=== PATIENT | female | born 1965 | race Caucasian/White ===

== ENCOUNTER 2019-02-27 22:05 | Emergency (ER) | payer SELFPAY ==
[2019-02-27 22:05] VITALS: BP 126/72; PULSE 90; RESP 16; TEMP 37; O2SAT 100; BMI 36.6
--- NOTE | 2019-02-28 | ED.VISSUMM ---
- ER Visit Summary Date of Service: 02/28/19 Chief Complaint: Right knee pain History of Present Illness: The patient is a 53 F who presents with right knee pain. This began with an injury 3 months ago. She slipped on ice stoved her right knee. She has had progressive pain ever since that time. She was seen at [place] emergency department about 2 weeks ago and had a negative x-ray and was advised on supportive care including anti-inflammatories rest ice elevation. She states her pain has continued to progress and now she is using a cane due to pain. No new fall. No new injury. No recent illness such as fever chest pain shortness of breath. Physical Examination: Afebrile vitals unremarkable No distress Patient has active full range of motion of the right knee she has no focal bony tenderness there is no erythema it is not hot to the touch she does not have an appreciable effusion no edema normal sensation light touch easily palpable dorsalis pedis pulse Test Results: Not indicated Emergency Department Course and Treatment: Patient presents with chronic right knee pain from an injury in December. She has had negative x-rays since that time. I do not believe repeat x-rays at this point would be of benefit. She was advised to continue supportive care including rest ice and elevation. We will also start her on Mobic. I advised that she establish a primary care physician as she would likely benefit from referral to physical therapy and if her pain is been going on for 3 months she may need an MRI which would not be indicated on an emergent basis in the emergency department at this time. She is in agreement with this plan. Patient discharged. Treatment Plan: [] Disposition: Discharge Impression: Chronic right knee pain This note was generated with [employer] dictation software. It may contain incorrect words, spelling, and punctuation that were not noted in review of the chart prior to signing ED Disposition - Plan for ED Patient: Referrals: Care Physician,No Primary [Primary Care Provider] -
--- NOTE | 2019-02-28 00:02 | ED.DEP ---
ED Disposition - Plan for ED Patient: Instructions: ED Sprain Knee Prescriptions: Meloxicam [Mobic] 15 mg PO DAILY #14 tab Referrals: Care Physician,No Primary [Primary Care Provider] - Noemy Ridley DO [STAFF PHYSICIAN] -
[2019-02-28 00:23] VITALS: BP 120/70; PULSE 78; RESP 15; O2SAT 99
[2019-02-28] MEDS: Meloxicam 15 MG Tablet PO (00:23)
== END 2019-02-28 00:24 | disposition home or self-care (01) ==
PROVIDERS: Emergency Provider Emergency Medicine
DX: M25.561 Pain in right knee (principal); G89.29 Other chronic pain; Z72.0 Tobacco use
CPT/HCPCS: 99283

== ENCOUNTER 2021-02-05 00:49 | Emergency (ER) | payer MEDICAID, SELFPAY ==
[2021-02-05 00:51] VITALS: BP 148/74; PULSE 76; RESP 18; TEMP 36.6; O2SAT 97; BMI 39.1
--- NOTE | 2021-02-05 01:11 | ED.DCSUM_ITS ---
History of Present Illness Chief Complaint: Upper Extremity Injury Informant: Patient Occurred: Today - JPTA Mechanism/Context: Same level fall, Trip - over a battery in driveway, fell into nearby piano w/ hands/fingers and fell to knees Location: R middle finger Quality of Pain: Aching Current Severity: Severe Maximum Severity: Severe Worsened by: movement Relieved by: nothing Associated Symptoms: Loss of function. Negative for: Parasthesias, Weakness, Inability to ambulate, Loss of consciousness, Amnesia Narrative: Bmonn-idlb-xazbbsif female accidentally tripped and fell, her outstretched fingers went into a nearby piano and she injured her hand, but mostly her longest middle finger which is deformed. She states the whole hand is sore but mostly the middle finger. She bruised and scraped her knees but she states they are fine and she was able to walk on them without any difficulty. Past Medical History - Allergies and Home Meds Allergies/Adverse Reactions: Allergies Penicillins Allergy (Verified 02/05/21 00:51) Hives Primary Care Physician: Luis Neville MD [STAFF PHYSICIAN] - 1-2 Weeks (call for appt) Past Medical History: None Smoking Status: Current every day smoker Review of Systems General: Denies: Chills, Fever, Sweats Musculoskeletal: Reports: Extremity Pain. Denies: Neck pain, Back pain Skin: Reports: Abrasions. Denies: Rash, Wounds Neurological: Denies: Headache, Weakness, Numbness Physical Exam Vital Signs/Narrative: Vital Signs Temp Pulse Resp BP Pulse Ox 02/05/21 00:51 97.9 F 76 18 148/74 H 97 Inital Vital Signs reviewed: Yes General: Well nourished, Well developed, Obese, - - NAD Head: Normocephalic, Atraumatic Extremeties: Patient has an obvious deformity with intact skin at the right PIPJ of the middle finger, it appears to be in extension and valgus. There is brisk cap refill distally. The entire finger is tender. No other deformities. The rest of the hand is mildly tender everywhere but I see no other obvious injury. The other 3 extremities are benign full range of motion no apparent injury other than left knee abrasion anteriorly without effusion. Skin: Normal color, No rash, Trauma - Abrasion left knee Neurological: Alert, Oriented x3, Cranial nerves II-XII grossly intact, Normal Strength, Normal Sensation, Normal Gait Psychological: Normal affect, Normal Mood Diagnostic/Tx/Re-eval - Medical Decision Making On my interpretation, 3 view x-ray of the right hand shows a dislocation at the middle finger PIPJ, possibly with a small associated avulsion fracture of the base of the middle phalanx, no other fracture or dislocation. See the procedure note, patient consented verbally to closed reduction without digital block which was offered. Reduction was uncomplicated. She had difficulty moving it afterwards due to pain and swelling, but all tendons work. I splinted her. Postreduction films on my interpretation 3 views right middle finger show arthritis at the affected joint, and probably a small minor avulsion chip fracture of the base of the middle phalanx. Patient was given a Naprosyn and a tramadol, as well as an ice pack, I splinted her and she will follow up with plastics/hand here in [place]. Of note, on the postreduction films, the joint alignment is not absolutely perfect when compared to other digits, but the joint is reduced. I did distract the joint prior to splinting, along with some gentle internal/external rotation of the middle phalanx on the proximal, and there was no movement and the patient tolerated this fine. I think there is either a joint effusion, or possibly cartilage/soft tissue disorder in the joint as a result of the trauma/injury. I explained this to her as well as the importance of follow-up. Procedures - Upper Extremity Splints Upper Extremity Splint: Alumifoam Splint Fabrication: Fabricated Location: Right - Middle finger. Neurovascularly intact distally after placement. Procedure(s): Closed reduction right middle finger PIPJ dislocation: Patient declined digital block. With manual traction and slight distal pressure at the base of the middle phalanx, the joint was reduced with an audible and palpable clunk, with limited range of motion afterwards due to pain but resolution of the deformity. Postreduction x-rays confirm this. ED Disposition - Plan for ED Patient: Disposition: Home or Assisted Living Diagnosis: Dislocation of proximal interphalangeal joint of right middle finger, initial encounter Instructions: ED Finger Dislocation Referrals: Luis Neville MD [STAFF PHYSICIAN] - 1-2 Weeks (call for appt)
--- NOTE | 2021-02-05 01:12 | RAD_ITS ---
STUDY: X-RAY - RIGHT HAND REASON FOR EXAM: Female, 55 years old. injury from fall. pain in 2nd, 3rd, and 4th right digits. TECHNIQUE: 3 view(s) of the hand. COMPARISON: None. FINDINGS: There is posterior dislocation and angulation of the middle finger at the proximal interphalangeal joint. Small osseous fragment at the base of the third middle phalanx likely small avulsion fracture. No additional fracture or dislocation visualized. The soft tissue structures are unremarkable. RAD/Hand Min 3 Views IMPRESSION: Middle finger dislocation at the proximal interphalangeal joint with likely small avulsion fracture. Electronically Signed: Satinder Valles MD at 1:41 EST Tel , Service support ,
[2021-02-05] MEDS: Naproxen 250 MG Tablet 500 MG PO (01:27)
[2021-02-05] MEDS: traMADol 50 MG Tablet PO (01:27)
--- NOTE | 2021-02-05 01:28 | RAD_ITS ---
STUDY: X-RAY - RIGHT HAND, ATTENTION middle FINGER REASON FOR EXAM: Female, 55 years old. postreduction -- middle finger TECHNIQUE: 3 view(s) of the finger were obtained. COMPARISON: Same day right hand radiograph. FINDINGS: Interval reduction of third finger dislocation at the proximal interphalangeal joint. There is small adjacent calcifications to the joint space likely representing small avulsion fracture. RAD/Finger(s) Min 2 Views IMPRESSION: Interval reduction of middle finger dislocation with likely small avulsion fracture at the base of the middle phalanx. Electronically Signed: Satinder Valles MD at 1:54 EST Tel , Service support ,
== END 2021-02-05 01:50 | disposition home or self-care (01) ==
PROVIDERS: Emergency Provider Emergency Medicine
DX: S63.282A Dislocation of proximal interphalangeal joint of right middle finger, initial encounter (principal); F17.200 Nicotine dependence, unspecified, uncomplicated; W01.198A Fall on same level from slipping, tripping and stumbling with subsequent striking against other object, initial encounter
CPT/HCPCS: 73130; 73140; 99284

== ENCOUNTER 2023-05-08 20:10 | Emergency (ER) | payer MEDICAID, SELFPAY ==
[2023-05-08 20:11] VITALS: BP 149/87; PULSE 74; RESP 15; TEMP 36.1; O2SAT 100; BMI 34.9
[2023-05-08 20:18] VITALS: O2SAT 100
--- NOTE | 2023-05-08 20:29 | EKG12_ITS ---
Test Reason : SOB/CP Blood Pressure : / mmHG Vent. Rate : 064 BPM Atrial Rate : 064 BPM P-R Int : 128 ms QRS Dur : 084 ms QT Int : 406 ms P-R-T Axes : 059 047 083 degrees QTc Int : 418 ms Normal sinus rhythm Normal ECG Confirmed by TREMAINE CLEMENS, DAVONTE ([id number]), manager editorial NAS HENSLEY ([id number]) on 05/10/2023 8:09:31 AM Referred By: CLIFFORD Confirmed By:DAVONTE PENALOZA MD
[2023-05-08] MEDS: Ipratropium/Albuterol Sulfate 3 ML AMPUL.NEB INHALATION (20:44)
[2023-05-08 20:45] VITALS: PULSE 66; RESP 14
[2023-05-08 20:45] LABS: Absolute Lymphocyte Count 3.42 X10^3/uL (0.83-4.51); Basophil# 0.07 X10^3/uL; Eosinophil# 0.31 X10^3/uL; Eosinophils% 4.2 % (0-5); Hematocrit 43.4 % (37-47); Hemoglobin 14.6 g/dL (12.0-15.0); Lymphocyte # 3.42 X10^3/ul (0.83-4.51); Lymphocyte % 46.5 % (19-41); Mean Corp Hgb Conc 33.6 g/dL (32-36); Mean Corpuscular Hgb 31.1 pg (27.0-32.0); Mean Corpuscular Volume 92.3 fL (81-99); Mean Platelet Vol. 9.1 fl (6.2-12.0); Monocyte# 0.59 X10^3/uL; NRBC Flagged by Analyzer 0 % (0-5); Neutrophil # 2.95 X10^3/uL (2.7-7.7); Neutrophil % 40.2 % (47-70); Platelet Count 264 K/mm3 (150-450); RBC Distribution Width SD 44.7 fl (35.1-43.9); White Blood Count 7.4 K/mm3 (4.4-11.0)
[2023-05-08 21:03] LABS: D-Dimer Quantitative (DVT/PE) 0.57 FEU/ug/m (0.27-0.49)
[2023-05-08 21:10] VITALS: RESP 20; O2SAT 100
[2023-05-08 21:24] LABS: Anion Gap 3 (5-15); BUN 14 mg/dL (7-18); Calcium,Total 8.8 mg/dL (8.5-10.1); Chloride 107 mmol/L (98-107); Creatinine, Serum 0.93 mg/dL (0.55-1.02); EST Glomerular Filtration Rate 66 mL/min (>60); Est Glom Filt Rate - Afr Amer 79 mL/min (>60); Estimated Creatinine Clearance 60.06 ml/min; Glucose 71 mg/dL (74-106); Potassium 4.2 mmol/L (3.5-5.1); Sodium Level 142 mmol/L (136-145); Troponin-I HS 5 pg/mL (3.0-54.0)
[2023-05-08 22:00] VITALS: RESP 20
--- NOTE | 2023-05-08 22:09 | RAD_ITS ---
INDICATION: Dyspnea EXAMINATION/TECHNIQUE: X-RAY - XR Chest 1 View COMPARISON: None. FINDINGS: LINES/DEVICES: None. LUNGS: No pulmonary edema or focal airspace consolidation. No sizable pleural effusion. No pneumothorax detected. MEDIASTINUM AND CARDIOVASCULAR STRUCTURES: Heart size within normal limits. Mediastinal contours unremarkable. BONES AND SOFT TISSUES: No acute findings. RAD/Chest 1 View (Portable) IMPRESSION: No radiographic evidence of acute cardiopulmonary disease. Electronically Signed: Gee Berger MD at 22:22 EDT ,
[2023-05-08 23:00] VITALS: BP 111/85
--- NOTE | 2023-05-09 00:42 | EDS_ITS ---
HPI History of Present Illness Chief Complaint: Shortness of Breath Informant: patient Onset/Context/Timing Onset: Days Context: gradual Timing: Waxes and wanes Quality: Positive for Dyspnea on exertion Worsened by: Exertion Relieved by: Nothing Associated Symptoms sore throat, subjective and chills; Negative for cough, rhinorrhea, post nasal drip, ear pain, fever or sweats Chest Pain: Positive for Intermittent (Very brief), Sharp and Burning Narrative Narrative: Patient presents with shortness of breath that has been getting worse over the past couple days. Patient states it has been waxing and waning. Patient states he feels like a tightness and it is restricted. Patient states it is worse with exertion. Patient admits to some subjective chills but denies any fevers. Patient does admit to a sore throat. Patient denies any cough. Patient admits to some occasional sharp and burning pain in her chest. Patient states it comes and goes. Patient states it only lasts for a few seconds. Patient also admits to a 20 pound weight loss in the last 2 months which has been unintentional. Patient is concerned about cancer because she has had several family members with lung cancer. Patient states she herself has had skin cancer. PE Risk Factors: Positive for Cancer; Negative for OCP + Smoking + > 35, Prior DVT or PE, Recent immobilization, Recent surgery or Recent travel PFSH PFSH Medical History no medical history no medical history Home Medications albuterol sulfate 90 mcg/actuation aerosol inhaler (Ventolin HFA) 1 - 2 puff inhalation Q4H PRN PRN Wheezing ##1 05/08/23 [Rx Last Taken Unknown] Allergy/AdvReac Type Severity Reaction Status Date / Time Penicillins Allergy Hives Verified 05/08/23 20:14 Surgical History (Updated 05/09/23 @ 00:[address] Eligio Tapia DO) Hx of tubal ligation Social History Smoking Status: Current every day smoker tobacco type: cigarettes ROS ROS ED Constitutional Constitutional ED: Denies chills or fever(s) Eyes Eyes: Denies blurry vision or change in vision ENT ENT ED: Denies rhinorrhea or sore throat Cardiovascular Cardiovascular: Reports chest pain; Denies palpitations Respiratory/Chest Respiratory/Chest: Reports dyspnea; Denies cough Gastrointestinal Gastrointestinal: Denies nausea or vomiting Genitourinary Genitourinary ED: Denies dysuria or hematuria Musculoskeletal Musculoskeletal: Reports back pain; Denies neck pain Integumentary Reports rash; Denies abscess Neurologic Neurologic: Denies headache(s) or weakness Psychiatric Psychiatric: Reports anxiety Allergic/Immunologic Allergic/Immunologic ED: Denies mouth swelling or urticaria EXAM Physical Exam Const Vital Signs: 05/08/23 20:11 05/08/23 20:18 05/08/23 20:45 Temperature 96.9 F L Temperature Source Temporal Pulse Rate 74 66 Respiratory Rate 15 14 Respiratory Effort Short of Breath Blood Pressure 149/87 H Blood Pressure Mean 107 Pulse Ox 100 Oxygen Delivery Method Room Air Room Air 05/08/23 23:00 05/08/23 21:10 05/08/23 22:00 Temperature Temperature Source Pulse Rate Respiratory Rate 20 H 20 H Respiratory Effort Blood Pressure 111/85 H Blood Pressure Mean Pulse Ox 100 Oxygen Delivery Method Room Air Positive well nourished and well developed General Appearance ED: well developed HEENT Reports moist mucous membranes Neck supple and no JVD Resp normal respiratory effort and clear to auscultation bilaterally Cardio regular rate, regular rhythm and no murmurs GI normal to inspection, nondistended, normoactive bowel sounds and non-tender Palpation: soft Extremity normal to inspection General Extremety ED: Negative for edema or tenderness General Extremity: Negative for edema Neuro oriented x3, CN's II-XII intact bilaterally and no sensory deficits noted Sensorium / Orientation: alert Motor Exam: strength 5/5 throughout Psych mental status grossly normal Skin no rashes or lesions noted MDM MDM MDM Narrative Medical decision making narrative: Differential diagnosis includes reactive airway disease, anxiety, pulmonary embolism, anemia, COVID-19 infection, influenza infection, cardiac dysrhythmia, and cardiac ischemia. EKG will be obtained to assess for cardiac dysrhythmia and cardiac ischemia. Chest x-ray will be obtained to assess for pneumonia and lung cancer. COVID-19 rapid antigen will be obtained to assess for COVID-19 infection. Influenza A and influenza B antigens will be obtained to assess for influenza infection. CBC will be obtained to assess for leukocytosis and anemia. Basic metabolic profile will be obtained to assess for electrolyte abnormality and renal function. D-dimer will be obtained to assess for pulmonary embolism. High-sensitivity troponin will be obtained to assess for cardiac ischemia. Lab Data Attestation: I reviewed the patient's lab results. Lab results narrative: CBC was reviewed and was within normal limits. Basic metabolic profile was reviewed and was within normal limits. High-sensitivity troponin was reviewed and was normal. D-dimer was reviewed and was normal for her age at 0.57. COVID-19 rapid antigen was obtained and was normal. Influenza A and influenza B antigens were reviewed and were normal. Labs: Laboratory Results - last 24 hr 05/08/23 05/08/23 05/08/23 20:25 20:25 20:25 WBC 7.4 RBC 4.70 Hgb 14.6 Hct 43.4 MCV 92.3 MCH 31.1 MCHC 33.6 RDW Std Deviation 44.7 H RDW Coeff of Arleen 13.0 Plt Count 264 MPV 9.1 Immature Gran % (Auto) 0.100 Neut % (Auto) 40.2 L Lymph % (Auto) 46.5 H Nuckolls % (Auto) 8.0 Eos % (Auto) 4.2 Baso % (Auto) 1.0 Absolute Neuts (auto) 3.0 Absolute Lymphs (auto) 3.42 Nucleated RBC % 0 D-Dimer Quant (PE/DVT) 0.57 H* Sodium 142 Potassium 4.2 Chloride 107 Carbon Dioxide 32.0 Anion Gap 3 L BUN 14 Creatinine 0.93 Estim Creat Clear Calc 60.06 Est GFR (MDRD) Af Amer 79 Est GFR (MDRD) Non-Af 66 BUN/Creatinine Ratio 15.0 Glucose 71 L Calcium 8.8 Troponin I High Sens 5 Radiography Diagnostic Testing: Clinical Impression(s) from Imaging Studies Chest X-Ray 05/08/23 22:09 IMPRESSION: No radiographic evidence of acute cardiopulmonary disease. Electronically Signed: Gee Berger MD at 22:22 EDT , Portable 1 view chest x-ray was obtained. On my independent interpretation, lung osman are clear. There is normal cardiac silhouette. Bony thorax is normal. There is no acute process noted. Radiologist also interpreted the x- ray and agrees. EKG Initial EKG: Attestation: I personally reviewed and interpreted this EKG as follows: Interpretation: Sinus Rhythm (64) and No Acute Injury Pattern Comments: EKG was obtained. On my independent interpretation, it showed a normal sinus rhythm with a rate of 64. NE interval, QRS interval, and QTc intervals were all normal. [place] was normal. There are no acute ST or T wave changes. Prior EKG tracings: not available for review Prior: No Prior Treatment and Re-Evaluation :: Patient was given a DuoNeb aerosol here. Patient is feeling better on reevaluation. Patient was advised of her findings. Patient has a HEART score of 1. Patient was advised that this is low risk for acute cardiac event. Patient was instructed to follow-up with her primary care physician in 5 to 7 days. Patient was given a prescription for an albuterol inhaler. Patient was instructed to return if worse in any way. Patient understood and was agreeable with the plan. All questions were answered. Discharge Plan Triage Chief Complaint: Shortness of Breath ED Provider: Eligio Tapia Dx/Rx/DC Orders Clinical Impression: Dyspnea Instructions: ED Dyspnea Prescriptions: New albuterol sulfate [Ventolin HFA] 90 mcg/actuation HFA aerosol inhaler 1 - 2 puff inhalation Q4H PRN PRN (Reason: Wheezing) Qty: 1 0RF Primary Care Provider: Care Physician,No Primary Referrals: Dipti Lan MD [Med Staff - Food And Beverage Controller] - 5-7 Days Care Physician,No Primary [Primary Care Provider] - Disposition Disposition: Home, Self Care Discharge Date/Time: 05/08/23 23:02
== END 2023-05-08 23:02 | disposition home or self-care (01) ==
PROVIDERS: Emergency Provider Emergency Medicine; Visit Provider Emergency Medicine
DX: R06.00 Dyspnea, unspecified (principal); F17.210 Nicotine dependence, cigarettes, uncomplicated
CPT/HCPCS: 71045; 80048; 84484; 85025; 85379; 87428; 93005; 94640; 99284; A4216

== ENCOUNTER 2023-11-02 00:34 | Emergency (ER) | payer MEDICAID, SELFPAY ==
[2023-11-02 00:35] VITALS: BP 148/71; PULSE 80; RESP 18; TEMP 36.1; O2SAT 95; BMI 35.5
--- NOTE | 2023-11-02 01:05 | EDS_ITS ---
HPI History of Present Illness Chief Complaint: Lower Extremity Injury Detail of Chief Complaint: Right foot pain Informant: patient Narrative Narrative: Patient presents with right foot pain for the past several weeks. She states she feels like her arch is collapsing. She states when she steps on uneven ground she feels like her bones are not stable. She denies any known injury. No recent change in footwear. She has been taking ibuprofen as needed. PFSH PFSH Medical History no medical history no medical history Home Medications albuterol sulfate 90 mcg/actuation aerosol inhaler (Ventolin HFA) 1 - 2 puff inhalation Q4H PRN PRN Wheezing ##1 05/08/23 [Rx Last Taken Unknown] Allergy/AdvReac Type Severity Reaction Status Date / Time Penicillins Allergy Hives Verified 05/08/23 20:14 Surgical History (Updated 05/09/23 @ 00:[address] Eligio Tapia DO) Hx of tubal ligation Social History Smoking Status: Current every day smoker tobacco type: cigarettes ROS ROS ED Constitutional Constitutional ED: Denies chills or fever(s) Eyes Eyes: Denies discharge from eye(s) ENT ENT ED: Denies discharge from eye(s), rhinorrhea or sore throat Cardiovascular Cardiovascular: Denies chest pain Respiratory/Chest Respiratory/Chest: Denies cough or dyspnea Musculoskeletal Musculoskeletal: Reports extremity pain; Denies back pain Integumentary Denies Abrasions or rash Neurologic Neurologic: Denies headache(s), paresthesias or weakness Psychiatric Psychiatric: Denies anxiety or depression Allergic/Immunologic Allergic/Immunologic ED: Denies lip swelling or urticaria EXAM Physical Exam Narrative Exam Narrative: Patient sitting upright in bed no acute distress. Const Vital Signs: 11/02/23 00:35 Temperature 96.9 F L Temperature Source Temporal Pulse Rate 80 Respiratory Rate 18 Blood Pressure 148/71 H Blood Pressure Mean 96 Pulse Ox 95 Oxygen Delivery Method Room Air Positive well nourished and well developed General Appearance ED: well developed HEENT Reports moist mucous membranes Eyes PERRL Neck full ROM Chest Wall inspection of chest normal and palpation of chest normal Resp normal respiratory effort and clear to auscultation bilaterally Cardio regular rate and regular rhythm GI non-tender Extremity normal to inspection Extremity Narrative: Mild tenderness noted to the lateral portion of the right foot. No erythema, edema, ecchymosis, abrasions. Good cap refill distally. Mild lateral foot pain with dorsiflexion of the toes. Calf is soft and nontender. Neuro oriented x3 and moves all extremities Psych mental status grossly normal Skin no wounds Rashes: no rashes MDM MDM MDM Narrative Medical decision making narrative: Right foot x-rays obtained to evaluate for stress fracture. Right foot x-ray per my interpretation reveals no evidence of fracture. Lino wrap is applied around the foot to provide support. She will continue anti- inflammatories. She is referred to Dr. Oscar, on-call for podiatry. Discharge Plan Triage Chief Complaint: Lower Extremity Injury ED Provider: Denise Ramirez Dx/Rx/DC Orders Clinical Impression: Right foot sprain Instructions: ED Foot Sprain Prescriptions: No Action albuterol sulfate [Ventolin HFA] 90 mcg/actuation HFA aerosol inhaler 1 - 2 puff inhalation Q4H PRN PRN (Reason: Wheezing) Qty: 1 0RF Primary Care Provider: Care Physician,No Primary Referrals: Artem Oscar DPM [Med Staff - Active Staff] - 1 Week Care Physician,No Primary [Primary Care Provider] - Disposition Disposition: Home, Self Care
--- NOTE | 2023-11-02 02:10 | RAD_ITS ---
EXAM: XR RIGHT FOOT COMPLETE, 3 OR MORE VIEWS CLINICAL INDICATION: pain TECHNIQUE: Frontal, lateral and oblique views of the right foot. COMPARISON: No relevant prior studies available. FINDINGS: BONES/JOINTS: Moderate plantar calcaneal spur. Degenerative narrowing of the second through fifth toe DIP joints. No acute fracture. No subluxation. Normal alignment. No sclerotic or destructive changes observed. SOFT TISSUES: Soft tissue swelling dorsal to the mid foot. No radiopaque foreign body. RAD/Foot min 3 Views IMPRESSION: Soft tissue swelling. No acute fracture or dislocation identified. Electronically Signed: Donnie Cortez MD at 3:04 EST ,
== END 2023-11-02 02:28 | disposition home or self-care (01) ==
PROVIDERS: Emergency Provider Emergency Medicine; Visit Provider Emergency Medicine
DX: S93.601A Unspecified sprain of right foot, initial encounter (principal); F17.210 Nicotine dependence, cigarettes, uncomplicated; X58.XXXA Exposure to other specified factors, initial encounter
CPT/HCPCS: 73630; 99282

== ENCOUNTER 2024-04-09 11:54 | Day surgery (SDC) | payer MEDICAID, SELFPAY ==
--- NOTE | 2024-04-07 12:40 | EKG12_ITS ---
Test Reason : PRE-OP Blood Pressure : / mmHG Vent. Rate : 073 BPM Atrial Rate : 073 BPM P-R Int : 126 ms QRS Dur : 086 ms QT Int : 406 ms P-R-T Axes : 074 065 075 degrees QTc Int : 447 ms Normal sinus rhythm Normal ECG Confirmed by TREMAINE CLEMENS, DAVONTE ([id number]), scientific publications editor WESLEY BARRIOS ([id number]) on 04/08/2024 6:56:06 AM Referred By: Peter Yuan Confirmed By:DAVONTE PENALOZA MD
[2024-04-07 14:32] LABS: Absolute Neutrophil Count 3.1 X10^3/uL (2.0-7.7); Basophil# 0.08 X10^3/uL; Basophil% 1.2 % (0-1); Eosinophil# 0.35 X10^3/uL; Eosinophils% 5.1 % (0-5); Hematocrit 43.5 % (37-47); Hemoglobin 14.5 g/dL (12.0-15.0); Lymphocyte % 39.5 % (19-41); Mean Corp Hgb Conc 33.3 g/dL (32-36); Mean Corpuscular Hgb 30.9 pg (27.0-32.0); Mean Corpuscular Volume 92.6 fL (81-99); Monocyte# 0.61 X10^3/uL; Monocyte% 8.9 % (0-10); NRBC Flagged by Analyzer 0 % (0-5); Neutrophil # 3.09 X10^3/uL (2.7-7.7); Neutrophil % 45.2 % (47-70); Platelet Count 269 K/mm3 (150-450); RBC Distribution Width CV 13.6 % (11.6-14.6); RBC Distribution Width SD 46.7 fl (35.1-43.9); White Blood Count 6.8 K/mm3 (4.4-11.0)
[2024-04-07 15:02] LABS: Anion Gap 5 (5-15); BUN 20 mg/dL (7-18); BUN/Creat Ratio 27.7 RATIO (10-20); Calcium,Total 9.1 mg/dL (8.5-10.1); Chloride 108 mmol/L (98-107); Creatinine, Serum 0.72 mg/dL (0.55-1.02); EST Glomerular Filtration Rate 88 mL/min (>60); Est Glom Filt Rate - Afr Amer 106 mL/min (>60); Glucose 88 mg/dL (74-106); Potassium 4.2 mmol/L (3.5-5.1); Sodium Level 139 mmol/L (136-145)
[2024-04-09] VITALS (7 sets, daily range): BP systolic 118–143; BP diastolic 59–86; PULSE 64–81; RESP 16–18; TEMP 36.2–37; O2SAT 96–100; BMI 41.0
[2024-04-09] MEDS: Lactated Ringers 1,000 ML 15 ML IV (12:25)
[2024-04-09] MEDS: Clindamycin in 0.9% Sod Chlor 600 MG/50 ML BAG 100 MG IV (12:52)
[2024-04-09] MEDS: Epinephrine (1 mg/ml) 1 MG/ML VIAL (13:16)
[2024-04-09] MEDS: Bupiv/Epi 0.5% Mpf 30 ML Vial INFILT (13:28)
--- NOTE | 2024-04-09 13:44 | OP.PCM_ITS ---
Report of Operation Date of Procedure: 04/09/24 Description of Surgical Findings:: Preoperative diagnosis: 1. 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 Right knee loose body 3. Right knee medial meniscus tear Postoperative diagnosis: 1. 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 Right knee loose body 3. Right knee medial meniscus tear Procedure: Right knee arthroscopic chondroplasty, removal of loose body and partial medial meniscectomy Surgeon: Peter Yuan DO [employer] Teacher: Maria Isabel Maldonado PA-C Anesthesia: General LMA Anesthesiologist: Dr. Kyle Estimated blood loss: 2 cc IV fluids: Per anesthesia record Urine output: None recorded Specimen: None Implants: None Packing/drains: None Complications: None apparent Preoperative indications: This is a 58-year-old female seen in outpatient setting for right knee pain and mechanical symptoms. MRI demonstrated osteochondral lesion of the medial femoral condyle, loose body and medial meniscus tear. She failed nonoperative treatment for bedside, activity modification, physical therapy. I recommend surgical progressive form of right knee arthroscopic removal of loose body, partial medial vasectomy and chondroplasty. The risks and benefits, alternatives to the procedure reviewed with patient at length and she agreed to proceed. Risks included but were not limited to bleeding, infection, loss of life or limb, need for additional surgery, persistent pain, posttraumatic arthritis, neurovascular injury, stiffness, DVT or PE, risk of anesthesia. Informed consent obtained. Description of procedure: Patient identified preoperative holding her by name, correct number, and date of . The operative extremity was marked. All questions were answered to the patient satisfaction. At time of her procedure, patient brought the operative suite positioned supine on standard operating table. All bony prominences well-padded. General anesthesia was administered and LMA was placed. A well-padded pneumatic tourniquet was applied to the operative upper thigh. Arthroscopic leg argueta was applied to the right thigh. Well-leg argueta was placed in the patient's left thigh. Foot of the bed was dropped 90 degrees. We prepped and draped the right lower extremity in normal, sterile orthopedic fashion. We performed timeout with all parties in attendance in agreement with the side, site, operation be performed. 3 g Ancef was administered by anesthesia staff prior to tourniquet ablation. I then exsanguinated the right lower extremity with Esmarch bandage. Tourniquet was inflated to 270 mmHg for approximately 15 minutes. Esmarch was removed. Standard anterolateral portal was then established 90 degrees of flexion. Blunt tipped trocar was used to enter the knee joint. Knee was filled with normal saline with epinephrine. Arthroscope was then introduced. Diagnostic a rthroscopy of the patellofemoral joint demonstrated pristine cartilage, hypertrophic fat pad. Medial lateral gutter was unremarkable. Valgus stress was applied the knee to anterior the medial compartment with the knee in extension. Anterior medial portal was established under direct visualization. Medial compartment was then examined. Positive trampoline sign was noted in the medial femoral condyle. An unstable chondral edge was noted consistent with a trapdoor type appearance. Chondral excision was performed overlying the osteochondral lesion exposing a OCD lesion measuring 2 cm in the AP dimension and 1 cm in the medial lateral dimension. Stable chondral margins were established with arthroscopic shaver. Degenerative central third to posterior horn inner third meniscal tearing was noted debrided to stable chondral rim with combination of baskets and shaver. Loose body was identified in the medial compartment approximately 1 cm maximal diameter and retrieved out the anterior medial portal. Intercondylar notch was then examined and appeared pristine. Lateral compartment was entered with [id number] stress and appeared pristine. 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 The knee was thoroughly lavaged with normal saline. The knee was anesthetized with 30 cc total quarter percent bupivacaine with epinephrine. Portal sites were closed in interrupted [id number] fashion with 3-0 nylon suture. Bulky sterile compression system was applied. Tourniquet was deflated. Patient was safely awoken the operative suite and extubated. She was transferred to his [facility] and subsequent to PACU in stable condition. Postoperative plan: Weightbearing, range of motion as tolerated operative knee Follow-up in 2 weeks for suture removal Physical therapy to start at 2 weeks Multimodal pain management with opioid, NSAID and Tylenol Aspirin 81 mg for DVT prophylaxis x 2 weeks Ice and elevation.
[2024-04-09] MEDS: Oxycodone/Apap 5/325 Tablet PO (14:39)
== END 2024-04-09 15:32 | disposition home or self-care (01) ==
LOC: SDC 11:54 → AC 11:55
PROVIDERS: Physician Assistant Surgical; Referring Provider Student in an Organized Health Care Education/Training Program; Visit Provider Student in an Organized Health Care Education/Training Program
PROC: (CPT 29870; principal; 2024-04-09 13:00)
DX: S83.241A Other tear of medial meniscus, current injury, right knee, initial encounter (principal); M23.41 Loose body in knee, right knee; X58.XXXA Exposure to other specified factors, initial encounter; F17.210 Nicotine dependence, cigarettes, uncomplicated
CPT/HCPCS: 29881; 36415; 80048; 85025; 93005; J7120; J2405